=== PATIENT | female | born 1960 | race Caucasian/White ===

== ENCOUNTER 2016-12-30 13:23 | Emergency (ER) | payer OTHER ==
[~2016-12-30] VITALS: Ht 152.4 cm; Wt 70.0 kg
[2016-12-30] MEDS ORDERED: CILO100T PO (13:29)
[2016-12-30] MEDS ORDERED: RAMI10CA PO (13:29)
[2016-12-30 13:30] VITALS: BP 209/93; PULSE 106; RESP 22; TEMP 97.5; O2SAT 95
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
[2016-12-30] MEDS ORDERED: SODIUM CHLORIDE 0.9% FLUSH 5 ML FLUSH IVF PRN (13:45)
[2016-12-30] MEDS ORDERED: ACETAMINOPHEN/HYDROcodone 325 MG/5 MG TAB PO ONE (13:45)
[2016-12-30 14:47] VITALS: BP 188/90; PULSE 106; RESP 18; O2SAT 97
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
[2016-12-30] MEDS ORDERED: IBUP-232 PO (15:09)
[2016-12-30 15:27] LABS: BACTERIA, URINE RARE /hpf; BLOOD, URINE TRACE (NEG); COMMENT (UR) CULT NOT INDICATED; CULTURE IF INDICATED CULT NOT INDICATED; GLUCOSE,URINE NEG (NEG); KETONE, URINE NEG (NEG); NITRITE,URINE NEG (NEG); PH, URINE 5.5 (5.0-8.5); SQUAMOUS EPITHELIAL CELL URINE 2 /hpf (0-5); URINE COLOR LIGHT-YELLOW (YELLW/STRAW)
== END 2016-12-30 16:36 | disposition home or self-care (01) ==
LOC: NEPC 13:23
DX: S70.01XA Contusion of right hip, initial encounter (principal); I10 Essential (primary) hypertension; V49.50XA Passenger injured in collision with unspecified motor vehicles in traffic accident, initial encounter
CPT/HCPCS: 71010; 72050; 73502; 73564; 81001; 99284